=== PATIENT | male | born 1955 | race African-American/Black ===

== ENCOUNTER → 2016-12-21 | Outpatient (CLI) | payer OTHER ==
--- NOTE | 2016-12-21 11:17 | REP ---
RIGHT WRIST: Four views of the right wrist are performed. I see no acute fracture or dislocation. There is mild radiocarpal joint space narrowing and mild narrowing at the distal radial ulnar joint as well. There is moderate narrowing of subchondral sclerosis and spurring at the joint between the trapezium and base of first metacarpal. 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 Signed by Yariel Mcdonald MD 12/21/2016 12:44 P
== END ==
LOC: M RAD 09:20
PROVIDERS: ATTEND Surgery
DX: M25.531 Pain in right wrist (principal)